=== PATIENT | male | born 1955 | race Caucasian/White ===

== ENCOUNTER 2018-03-31 20:29 | Inpatient (IN) | payer OTHER ==
[~2018-03-31] VITALS: Ht 180.3 cm; Wt 118.0 kg
[2018-03-31] MEDS ORDERED: MORPHINE SULFATE 4 MG/ML, 1ML ONE (20:38)
[2018-03-31] MEDS ORDERED: ONDANSETRON 2MG/ML, 2ML ONE (20:38)
[2018-03-31] MEDS ORDERED: NITROGLYCERIN SINGLE TAB 0.4 MG SL ONE (20:45)
[2018-03-31] MEDS ORDERED: MORPHINE SULFATE 4 MG/ML, 1ML IVPush PRN (21:00)
[2018-03-31] MEDS ORDERED: LIDOCAINE 2%, 20ML ONE (21:00)
[2018-03-31] MEDS ORDERED: ONDANSETRON 2MG/ML, 2ML IVPush ONE (21:00)
[2018-03-31] MEDS ORDERED: MIDAZOLAM 1 MG/ML, 5ML ONE (21:00)
[2018-03-31] MEDS ORDERED: PLEASE ENTER ALLERGIES MC SCH (21:00)
[2018-03-31] MEDS ORDERED: BIVALIRUDIN 250 MG ONE (21:00)
[2018-03-31] MEDS ORDERED: HEPARIN 1,000 UNITS/ML, 10ML ONE (21:00)
[2018-03-31] MEDS ORDERED: FENTANYL PF 100 MCG/2ML ONE (21:00)
[2018-03-31] MEDS ORDERED: VERAPAMIL 2.5 MG/ML, 2ML ONE (21:00)
[2018-03-31] MEDS ORDERED: PLEASE ENTER HEIGHT AND WEIGHT MC SCH (21:00)
[2018-03-31] MEDS ORDERED: SODIUM CHLORIDE FLUSH 10ML SYR IVF PRN (21:00)
[2018-03-31 21:03] LABS: TROPONIN I < 0.015 ng/mL (0.000-0.045)
[2018-03-31 21:21] LABS: BASOPHILS # (AUTO) 0.06 x10^3/uL (0-0.1); BASOPHILS % (AUTO) 1 % (0-1); EOSINOPHILS % (AUTO) 2 % (1-7); LYMPHOCYTES % (AUTO) 36 % (22-44); MD NO; MEAN CORPUSCULAR HEMOGLOBIN 31.1 pg (27.5-34.5); MEAN CORPUSCULAR HGB CONC 33.8 g/dL (33.2-36.2); MEAN CORPUSCULAR VOLUME 91.9 fL (81-97); MEAN PLATELET VOLUME 8.6 fL (7.4-10.4); MONOCYTES # (AUTO) 0.58 x10^3/uL (0.2-0.8); MONOCYTES % (AUTO) 7 % (2-9); NEUTROPHILS # (AUTO) 4.44 x10^3/uL (1.8-6.8); NEUTROPHILS % (AUTO) 54 % (42-75); PLATELET COUNT 225 x10^3/uL (130-400); RED BLOOD COUNT 4.46 x10^6/uL (4.38-5.82); RED CELL DISTRIBUTION WIDTH 13.6 % (9.4-14.8)
[2018-03-31] MEDS ORDERED: ATROPINE SYRINGE 0.1 MG/ML, 10ML ONE (21:23)
[2018-03-31] MEDS ORDERED: TICAGRELOR 90 MG TABLET ONE (21:29)
[2018-03-31] MEDS ORDERED: SODIUM CHLORIDE 0.9% 1,000 ML IV SCH (22:30)
[2018-03-31] MEDS ORDERED: ACETAMINOPHEN 325 MG TABLET PO PRN (22:30)
[2018-03-31] MEDS ORDERED: BISACODYL 5 MG EC TABLET PO PRN (22:30)
[2018-03-31] MEDS ORDERED: ZOLPIDEM 5MG TABLET PO PRN (22:30)
[2018-03-31] MEDS ORDERED: ONDANSETRON 2MG/ML, 2ML IV PRN (22:30)
[2018-03-31] MEDS ORDERED: BIVALIRUDIN 250 MG in DEXTROSE 5% 50 ML IV SCH (22:30)
[2018-03-31] MEDS ORDERED: BISACODYL 10 MG SUPP PR PRN (22:30)
[2018-03-31 22:41] LABS: INTERNATIONAL NORMALIZED RATIO 1.47 (0.93-1.1); PROTHROMBIN TIME 15.4 Seconds (9.6-11.5)
[2018-03-31 22:45] VITALS: BP 126/64
[2018-04-01 03:00] VITALS: BP 114/61
[2018-04-01 04:31] LABS: ANION GAP 6 mmol/L (5-15); CALCIUM 7.8 mg/dL (8.5-10.1); CHLORIDE 109 mmol/L (98-107); CREATININE 1.11 mg/dL (0.7-1.3)
[2018-04-01] MEDS: CARVEDILOL 3.125 MG TABLET PO SCH ×2 (04:56→17:56)
[2018-04-01] MEDS: ASPIRIN 81 MG TABLET EC PO SCH (04:56)
[2018-04-01] MEDS: TICAGRELOR 90 MG TABLET PO SCH ×2 (08:33→20:32)
[2018-04-01] MEDS: LISINOPRIL 5 MG TABLET PO SCH (11:50)
[2018-04-01] MEDS ORDERED: ATROPINE SYRINGE 0.1 MG/ML, 10ML ONE (14:38)
[2018-04-01 19:18] VITALS: BP 96/61
[2018-04-02 00:40] VITALS: BP 115/70
[2018-04-02] MEDS: CARVEDILOL 3.125 MG TABLET PO SCH (06:10)
[2018-04-02] MEDS: ASPIRIN 81 MG TABLET EC PO SCH (06:10)
[2018-04-02 07:20] VITALS: BP 114/75
[2018-04-02] MEDS: LISINOPRIL 5 MG TABLET PO SCH (08:31)
[2018-04-02] MEDS: TICAGRELOR 90 MG TABLET PO SCH (08:31)
[2018-04-02] MEDS ORDERED: LISI5TAB7 PO (09:59)
[2018-04-02] MEDS ORDERED: ATOR40TA78 PO (09:59)
[2018-04-02] MEDS ORDERED: ASPI81TA45 PO (09:59)
[2018-04-02] MEDS ORDERED: TICA90TA PO (09:59)
[2018-04-02] MEDS ORDERED: CARV3.1212 PO (09:59)
== END 2018-04-02 11:53 | disposition home or self-care (01) | DRG 246 ==
LOC: EDBD → MERGE 20:29 → ED 21:12 → EDIP 21:31 → CSU 21:52 → 5SO 04-01 13:18 → DCLOUNGE 04-02 11:36
PROVIDERS: ADMIT Internal Medicine Interventional Cardiology; ATTEND Internal Medicine Interventional Cardiology
PROC: 027034Z Dilation of Coronary Artery, One Artery with Drug-eluting Intraluminal Device, Percutaneous Approach (ICD-10-PCS; principal; 2018-03-31)
PROC: 4A023N7 Measurement of Cardiac Sampling and Pressure, Left Heart, Percutaneous Approach (ICD-10-PCS; 2018-03-31)
PROC: B2111ZZ Fluoroscopy of Multiple Coronary Arteries using Low Osmolar Contrast (ICD-10-PCS; 2018-03-31)
DX: I21.19 ST elevation (STEMI) myocardial infarction involving other coronary artery of inferior wall (principal); I50.31 Acute diastolic (congestive) heart failure; I47.2 Ventricular tachycardia; I11.0 Hypertensive heart disease with heart failure; E78.5 Hyperlipidemia, unspecified; I25.10 Atherosclerotic heart disease of native coronary artery without angina pectoris; I35.0 Nonrheumatic aortic (valve) stenosis; I48.0 Paroxysmal atrial fibrillation; Z79.899 Other long term (current) drug therapy; Z87.891 Personal history of nicotine dependence
CPT/HCPCS: 36415; 71045; 80047; 80048; 84484; 85025; 85610; 85730; 87081; 93005; 93306; 93458; 99156; 99157; 99285; C1769; C1894; G0378; J0461; J0583; J1644; J2250; J2405; J3010; J3490; C1725; C1874; C1887; J7030; Q9967